=== PATIENT | male | born 1990 | race Two or more races ===

== ENCOUNTER 2017-08-24 00:49 | Emergency (ER) | payer SELFPAY ==
[~2017-08-24] VITALS: Ht 180.3 cm; Wt 127.0 kg
[2017-08-24 00:50] VITALS: BP 142/89
[2017-08-24] MEDS ORDERED: HYDROcodone/APAP 5/325 TABLET ONE (01:22)
[2017-08-24] MEDS ORDERED: KETOROLAC 30 MG/1 ML ONE ×2 (01:25→01:27)
[2017-08-24] MEDS: OXYcodone/APAP 5/325MG TABLET PO ONE ×2 (01:26→01:30)
[2017-08-24] MEDS ORDERED: OXYcodone/APAP 5/325MG TABLET ONE (01:29)
[2017-08-24] MEDS ORDERED: KETOROLAC 30 MG/1 ML IM ONE (01:30)
== END 2017-08-24 01:48 | disposition home or self-care (01) ==
LOC: ED 01:15
DX: K08.89 Other specified disorders of teeth and supporting structures (principal); F17.200 Nicotine dependence, unspecified, uncomplicated
CPT/HCPCS: 99283